=== PATIENT | male | born 2000 | race Hispanic/Latino ===

== ENCOUNTER 2022-02-19 18:19 | Emergency (ER) | payer OTHER ==
[2022-02-19] MEDS ORDERED: Naproxen 500 MG TAB ONE (18:59)
[2022-02-19] MEDS ORDERED: Cyclobenzaprine 10 MG TAB ONE (18:59)
== END 2022-02-19 19:04 | disposition home or self-care (01) ==
LOC: NAV ERS 18:19
DX: S29.012A Strain of muscle and tendon of back wall of thorax, initial encounter (principal); R20.2 Paresthesia of skin; X50.9XXA Other and unspecified overexertion or strenuous movements or postures, initial encounter
CPT/HCPCS: 99283